=== PATIENT | female | born 1990 | race Caucasian/White ===

== ENCOUNTER 2018-05-21 14:43 | Outpatient (CLI) | payer OTHER ==
[2018-05-21 15:27] LABS: APPEARANCE,URINE SLIGHTLY-CLOUDY; BILIRUBIN,URINE NEGATIVE (NEGATIVE); COLOR,URINE YELLOW; GLUCOSE, URINE NEGATIVE (NEGATIVE); KETONES,URINE TRACE mg/dL (NEGATIVE); LEUKOCYTE ESTERASE,URINE NEGATIVE (NEGATIVE); NITRITE,URINE NEGATIVE (NEGATIVE); PROTEIN,URINE NEGATIVE (NEGATIVE); URINE SPECIFIC GRAVITY 1.025; UROBILINOGEN,URINE NEGATIVE mg/dL (<2.0)
[2018-05-21 15:40] LABS: ABSOLUTE LYMPHOCYTES (AUTO) 1.6 10^3/uL (0.5-4.7); ABSOLUTE MONOCYTES (AUTO) 0.8 10^3/uL (0.1-1.4); ABSOLUTE NEUT (AUTO) 7.4 10^3/uL (1.7-8.2); BASOPHILS % (AUTO) 0.2 % (0-2); EOSINOPHILS % (AUTO) 0.2 % (0-6); HEMATOCRIT 37.1 % (36.0-47.0); HEMOGLOBIN 12.7 g/dL (12.0-15.5); LYMPHOCYTES % (AUTO) 16.7 % (13-45); MEAN CORPUSCULAR HEMOGLOBIN 31.3 pg (27.0-33.4); MEAN CORPUSCULAR HGB CONC 34.2 g/dL (32.0-36.0); MEAN CORPUSCULAR VOLUME 92 fl (80-97); MONOCYTES % (AUTO) 8.3 % (3-13); PLATELET COUNT 158 10^3/uL (150-450); RED BLOOD COUNT 4.04 10^6/uL (3.72-5.28); RED CELL DISTRIBUTION WIDTH 13.7 % (11.5-14.0); SEGMENTED NEUTROPHILS % (AUTO) 74.6 % (42-78); TOTAL CELLS COUNTED % (AUTO) 100 %; WHITE BLOOD COUNT 9.9 10^3/uL (4.0-10.5)
[2018-05-21 15:41] LABS: URINE AMPHETAMINES SCREEN NEGATIVE; URINE BARBITURATES SCREEN NEGATIVE; URINE BENZODIAZEPINES SCREEN NEGATIVE; URINE COCAINE SCREEN NEGATIVE; URINE MARIJUANA (THC) SCREEN NEGATIVE; URINE METHADONE SCREEN NEGATIVE; URINE PHENCYCLIDINE SCREEN NEGATIVE
[2018-05-21 15:43] LABS: UR PRO/CREAT RATIO RESULT 0.1 mg/mg (0.0-0.2); URINE CREATININE 134.6 mg/dL (16-327)
[2018-05-21 15:58] LABS: ALANINE AMINOTRANSFERASE 11 U/L (9-52); ALKALINE PHOSPHATASE 113 U/L (38-126); ANION GAP 5 (5-19); ASPARTATE AMINO TRANSFERASE 13 U/L (14-36); BILIRUBIN,DIRECT 0.2 mg/dL (0.0-0.4); BILIRUBIN,TOTAL 0.3 mg/dL (0.2-1.3); BLOOD UREA NITROGEN 9 mg/dL (7-20); CALCIUM 9.3 mg/dL (8.4-10.2); CARBON DIOXIDE 23 mmol/L (22-30); CHLORIDE 109 mmol/L (98-107); GLUCOSE 86 mg/dL (75-110); POTASSIUM 4.1 mmol/L (3.6-5.0); SODIUM 136.5 mmol/L (137-145); TOTAL PROTEIN 5.6 g/dL (6.3-8.2); URIC ACID 4.7 mg/dL (2.5-6.2)
--- NOTE | 2018-05-21 16:42 | Non Stress Test Report ---
Non Stress Test Datetime Report Generated by CPN: 05/21/2018 16:42 DEMOGRAPHIC EGA NST: 39.2 MONITORING Monitor Explained: Monitor Explained; Test Explained; Patient Verbalized Understanding Time on Monitor: 05/21/2018 15:09 Time off Monitor: 05/21/2018 16:21 NST Duration: 72 NST INTERVENTIONS NST Interventions: PO Hydration; Reposition Patient Physician Notified NST: J SERRANO, CNM REVIEWED STRIP BABY A: [id number] BABY A Movement : Present Contraction Frequency : IRREG FHR Baseline : 115 Accelerations : 15X15 Decelerations : None Variability : Moderate 6-25bpm NST Review: Meets Criteria for Reactive NST NST Review and Verified By : MARIPOSA ATWOOD Results: Reactive NST REPORT Report Trigger: Send Report
== END 2018-05-21 16:40 | disposition home or self-care (01) ==
LOC: LC 14:43
PROVIDERS: ATTEND Obstetrics & Gynecology Gynecology
DX: Z34.93 Encounter for supervision of normal pregnancy, unspecified, third trimester (principal)
CPT/HCPCS: 36415; 59025; 80053; 80307; 81001; 82570; 83615; 84112; 84156; 84550; 85025

== ENCOUNTER 2018-05-26 22:27 | Inpatient (IN) | payer OTHER ==
[2018-05-26] MEDS: RINGERS SOLUTION,LACTATED 1,000 ML IV PRN (23:00)
[2018-05-26] MEDS ORDERED: DINOPROSTONE 10 MG VAGINAL INSERT.SR ONE (23:21)
[2018-05-26] MEDS ORDERED: RINGERS SOLUTION,LACTATED 300 ML IV ONE (23:33)
[2018-05-26] MEDS ORDERED: MAG HYDROX/AL HYDROX/SIMETH SUSP 30 ML UDCUP PO PRN (23:33)
[2018-05-26] MEDS ORDERED: DINOPROSTONE 10 MG VAGINAL INSERT.SR PV ONE (23:33)
[2018-05-26] MEDS ORDERED: OXYTOCIN/NORMAL SALINE 20 UNIT/1,000 ML RTUINJ IV PRN (23:33)
[2018-05-26] MEDS ORDERED: ACETAMINOPHEN 325 MG TABLET PO PRN (23:33)
[2018-05-26 23:47] LABS: ABSOLUTE LYMPHOCYTES (AUTO) 1.5 10^3/uL (0.5-4.7); ABSOLUTE MONOCYTES (AUTO) 0.7 10^3/uL (0.1-1.4); ABSOLUTE NEUT (AUTO) 5.3 10^3/uL (1.7-8.2); BASOPHILS % (AUTO) 0.3 % (0-2); EOSINOPHILS % (AUTO) 0.3 % (0-6); HEMATOCRIT 35.7 % (36.0-47.0); HEMOGLOBIN 12.4 g/dL (12.0-15.5); LYMPHOCYTES % (AUTO) 20.1 % (13-45); MEAN CORPUSCULAR HEMOGLOBIN 31.8 pg (27.0-33.4); MEAN CORPUSCULAR HGB CONC 34.7 g/dL (32.0-36.0); MEAN CORPUSCULAR VOLUME 92 fl (80-97); MONOCYTES % (AUTO) 9.6 % (3-13); PLATELET COUNT 148 10^3/uL (150-450); RED BLOOD COUNT 3.89 10^6/uL (3.72-5.28); RED CELL DISTRIBUTION WIDTH 13.8 % (11.5-14.0); SEGMENTED NEUTROPHILS % (AUTO) 69.7 % (42-78); TOTAL CELLS COUNTED % (AUTO) 100 %; WHITE BLOOD COUNT 7.7 10^3/uL (4.0-10.5)
[2018-05-26] MEDS ORDERED: ZOLPIDEM TARTRATE 5 MG TABLET ONE (23:55)
[2018-05-27] LABS: APPEARANCE,URINE SLIGHTLY-CLOUDY; BILIRUBIN,URINE NEGATIVE (NEGATIVE); COLOR,URINE YELLOW; GLUCOSE, URINE NEGATIVE (NEGATIVE); KETONES,URINE NEGATIVE (NEGATIVE); LEUKOCYTE ESTERASE,URINE NEGATIVE (NEGATIVE); NITRITE,URINE NEGATIVE (NEGATIVE); PROTEIN,URINE NEGATIVE (NEGATIVE); URINE SPECIFIC GRAVITY 1.025; UROBILINOGEN,URINE NEGATIVE mg/dL (<2.0)
[2018-05-27] MEDS: ZOLPIDEM TARTRATE 5 MG TABLET PO PRN ×2 (00:03→21:37)
[2018-05-27 00:23] LABS: URINE AMPHETAMINES SCREEN NEGATIVE; URINE BARBITURATES SCREEN NEGATIVE; URINE BENZODIAZEPINES SCREEN NEGATIVE; URINE COCAINE SCREEN NEGATIVE; URINE MARIJUANA (THC) SCREEN NEGATIVE; URINE METHADONE SCREEN NEGATIVE; URINE PHENCYCLIDINE SCREEN NEGATIVE
--- NOTE | 2018-05-27 06:11 | Admission Physical ---
Datetime Report Generated by CPN: 05/27/2018 06:10 CURRENT ADMISSION Chief Complaint: Scheduled Induction of Labor Indication for Induction: Maternal Diabetes Admit Impression : Term, Intrauterine ; Induction of Labor Admit Plan: Admit to Unit; Initiate Labor Induction Protocol ALLERGIES Medication Allergies: No Medication Allergies: No Known Allergies (05/26/2018) Latex: No Latex Allergies OBSTETRICAL HISTORY EDC: 05/26/2018 00:00 : 1 Para: 0 Term: 0 : 0 SAB: 0 IAB: 0 Ectopic: 0 Livin Cesareans: 0 VBACs: 0 Multiple Births: 0 Gestational Diabetes: Yes Rh Sensitization: No Incompetent Cervix: No MARIO: No Infertility: No ART Treatment: No Uterine Anomaly: No IUGR: No Hx Previous C/S: No Macrosomia: Yes Hx Loss/Stillborn: No PIH: No Hx : No Placenta Previa/Abruption: No Depression/PP Depression: No PTL/PROM: No Post Hemorrhage: No Current Procedures: Ultrasound; NST Obstetrical History Comments: G1- SEE RECORDS Alcohol: No Marijuana : No Cocaine: No Other Illicit Drugs: No Cigarettes: Former Smoker. [id number] MEDICAL HISTORY Diabetes: Yes Diabetes Type: Gestational Diabetes Blood Transfusion: No Pulmonary Disease (Asthma, TB): No Breast Disease: No Hypertension: No Computer Applications Engineer Surgery: No Heart Disease: No Hosp/Surgery: Yes Autoimmune Disorder: No Anesthetic Complications: No Kidney Disease: No Abnormal Pap Smear: No Neuro/Epilepsy: No Psychiatric Disorders: No Other Medical Diseases: Yes Hepatitis/Liver Disease: No Significant Family History: No Varicosities/Phlebitis: No Trauma/Violence : No Thyroid Dysfunction: No Medical History Comments: MORBID OBESITY, inner ear sx, T_A, Appe INFECTIOUS HISTORY Gonorrhea: No Genital Herpes: No Chlamydia: No Tuberculosis: No Syphilis: No Hepatitis: No HIV/AIDS Exposure: No Rash or Viral Illness: No HPV: No PHYSICAL EXAM General: Normal HEENT: Normal Neurologic: Normal Thyroid: Normal Heart: Normal Lungs: Normal Breast: Normal Back: Normal Abdomen: Normal Genitourinary Exam: Normal Extremities: Normal DTRs: Normal Pelvic Type: Adequate Vital Signs: Reviewed; Within Normal Limits VAGINAL EXAM Dilatation: 0 Effacement: 0 Station: -3 MEMBRANES Pooling: Negative Membranes: Intact FETUS A EGA: 40.1 Monitoring: External US FHR- Baseline: 130 Variability: Moderate 6-25bpm Accelerations: 15X15 Decelerations: None FHR Category: Category I Estimated Weight (gm): 3800 Presentation: Vertex PLANS FOR LABOR AND DELIVERY Labor and Delivery: Plan Pain Management: Natural Feeding Preference: Breast Benefit of Breast Feed Discussed: Yes Circumcision: Yes INFORMED CONSENT Signature: with User ID: [email or web address]
[2018-05-27] MEDS ORDERED: MISOPROSTOL 0.2 MG TABLET ONE (06:40)
[2018-05-27] MEDS ORDERED: OXYTOCIN/NORMAL SALINE 20 UNIT/1,000 ML RTUINJ ONE (06:41)
[2018-05-27] MEDS ORDERED: LIDOCAINE 1% INJ-PF (10 MG/ML) 30 ML SDV ONE (06:41)
[2018-05-27] MEDS ORDERED: PENICILLIN G POTASSIUM 5,000,000 UNIT in DEXTROSE 5%-WATER 100 ML IV ONE (08:10)
--- NOTE | 2018-05-27 13:07 | L&D Progress Notes ---
PROGRESS NOTES Datetime Report Generated by CPN: 05/27/2018 13:07 PROGRESS NOTE Impression: Reassuring Heart Rate Procedures: Sterile Vag Exam Plan: Induction Vital Signs : Reviewed; Within Normal Limits Comment: at 40.1 wks here starting last night for IOL due to GDM. S/p vaginal cervidil x 12 hours. Pt remains comfortable. +GBS. Plan PCN when in active labor. VE dimple/ [address] vaginal Cytotec to continue with IOL. Attending MD is Younger VAGINAL EXAM Dilatation: dimple Dilatation: 0 Effacement: 30 Effacement: 0 Station: -2 Station: -3 Contractions: occassional LAST VAGINAL EXAM-NURSING Dilitation: closed Effacement: thick Station: -2 Contractions: irritibility MEMBRANES Pooling: Negative Membranes: Intact Membranes: Intact FETUS A FHR - Baseline: 135 Monitoring: External US Variability: Moderate 6-25bpm Accelerations: 15X15 Decelerations: None FHR Category: Category I : 40.1 Estimated Weight (gm): 3800 Presentation: Vertex SIGNATURE SIGNATURE: [id number];14,[id number];13,[id number] SIGNATURE: [id number];14,[id number] SIGNATURE: [id number] Assignment: Shiloh Best MD Signature: with User ID: [email or web address] : with User ID: [email or web address]
[2018-05-27] MEDS ORDERED: MISOPROSTOL 0.1 MG TABLET ONE (13:18)
[2018-05-27] MEDS ORDERED: DINOPROSTONE 10 MG VAGINAL INSERT.SR PV ONE (19:00)
[2018-05-27] MEDS ORDERED: DINOPROSTONE 10 MG VAGINAL INSERT.SR ONE (19:55)
[2018-05-27] MEDS: RINGERS SOLUTION,LACTATED 1,000 ML IV PRN (20:14)
[2018-05-27] MEDS ORDERED: ZOLPIDEM TARTRATE 5 MG TABLET ONE (21:35)
[2018-05-28] MEDS: RINGERS SOLUTION,LACTATED 1,000 ML IV PRN ×3 (03:42→22:10)
--- NOTE | 2018-05-28 09:24 | L&D Progress Notes ---
PROGRESS NOTES Datetime Report Generated by CPN: 05/28/2018 09:23 PROGRESS NOTE Impression: Reassuring Heart Rate Procedures: Sterile Vag Exam Plan: Continue Present Management Comment: morrell bulb and pitocin VAGINAL EXAM Dilatation: 1 Effacement: 70 Station: -3 Dilitation: 1.0 Dilitation: FT Effacement: 70 Effacement: thick Station: -3 Station: -2 Contractions: irritability Contractions: irritibility MEMBRANES Membranes: Intact FETUS A FHR - Baseline: 140 : 40.2 FETUS C SIGNATURE: [id number];[id number];10,[id number] Assignment: Manish Chahal MD Signature: with User ID: [email or web address] : with User ID: [email or web address]
[2018-05-28] MEDS ORDERED: PENICILLIN G-K 5 MILLION UNIT VIAL ONE ×4 (10:08→22:00)
[2018-05-28] MEDS ORDERED: PROMETHAZINE HCL INJ 25 MG/1 ML VIAL ONE (11:36)
[2018-05-28] MEDS ORDERED: NALBUPHINE HCL INJ 10 MG/1 ML AMPULE ONE (11:36)
[2018-05-28] MEDS: PENICILLIN G POTASSIUM 2,500,000 UNIT in DEXTROSE 5%-WATER 50 ML IV SCH ×6 (13:30→18:22)
[2018-05-28] MEDS ORDERED: EPHEDRINE SULFATE INJ 50 MG/1 ML AMPULE ONE (14:30)
[2018-05-28] MEDS ORDERED: FENTANYL/BUPIVACAINE/NS/PF 300 MCG/150 ML RTUINJ EPI ONE (14:31)
[2018-05-28] MEDS ORDERED: BUPIVACAINE HCL 0.25 % INJ/PF (2.5 MG/1 ML) 30 ML VIAL ONE (14:31)
[2018-05-28 14:32] LABS: HEMATOCRIT 38.4 % (36.0-47.0); HEMOGLOBIN 13.4 g/dL (12.0-15.5); MEAN CORPUSCULAR HEMOGLOBIN 31.8 pg (27.0-33.4); MEAN CORPUSCULAR HGB CONC 34.9 g/dL (32.0-36.0); MEAN CORPUSCULAR VOLUME 91 fl (80-97); PLATELET COUNT 160 10^3/uL (150-450); WHITE BLOOD COUNT 10.5 10^3/uL (4.0-10.5)
[2018-05-28 14:44] LABS: ALANINE AMINOTRANSFERASE 23 U/L (9-52); ALBUMIN 3.2 g/dL (3.5-5.0); ALKALINE PHOSPHATASE 137 U/L (38-126); ANION GAP 6 (5-19); ASPARTATE AMINO TRANSFERASE 14 U/L (14-36); BILIRUBIN,TOTAL 0.3 mg/dL (0.2-1.3); BLOOD UREA NITROGEN 9 mg/dL (7-20); CALCIUM 9.2 mg/dL (8.4-10.2); CARBON DIOXIDE 20 mmol/L (22-30); CHLORIDE 110 mmol/L (98-107); GLUCOSE 105 mg/dL (75-110); POTASSIUM 4.3 mmol/L (3.6-5.0); TOTAL PROTEIN 5.6 g/dL (6.3-8.2); URIC ACID 5.3 mg/dL (2.5-6.2)
[2018-05-28] MEDS ORDERED: HYDRALAZINE HCL INJ/PF 20 MG/1 ML SDV ONE (15:51)
[2018-05-28] MEDS ORDERED: HYDRALAZINE HCL INJ/PF 20 MG/1 ML SDV IV ONE ×2 (16:03→16:40)
[2018-05-28] MEDS ORDERED: LIDOCAINE 2% INJ-PF (20 MG/ML) 10 ML AMPUL ONE ×2 (16:58→21:01)
[2018-05-28] MEDS ORDERED: OXYTOCIN 10 UNIT/ML VIAL ONE (21:26)
[2018-05-28] MEDS ORDERED: ACETAMINOPHEN 325 MG TABLET ONE (22:31)
[2018-05-29] MEDS ORDERED: OXYTOCIN/NORMAL SALINE 20 UNIT/1,000 ML RTUINJ IV PRN (02:25)
[2018-05-29] MEDS ORDERED: DIBUCAINE 1% OINTMENT 28 GM TP PRN (02:25)
[2018-05-29] MEDS ORDERED: ZOLPIDEM TARTRATE 5 MG TABLET PO PRN (02:25)
[2018-05-29] MEDS ORDERED: PROMETHAZINE HCL 25 MG SUPP.RECT PR PRN (02:25)
[2018-05-29] MEDS ORDERED: MAGNESIUM HYDROXIDE SUSP 30 ML UDCUP PO PRN (02:25)
[2018-05-29] MEDS ORDERED: NA PHOS,M-B/NA PHOS,DI-BA (ADULT) 133 ML ENEMA PR PRN (02:25)
[2018-05-29] MEDS ORDERED: PSEUDOEPHEDRINE HCL 30 MG TABLET PO PRN (02:25)
[2018-05-29] MEDS ORDERED: MEASLES,MUMPS&RUBELLA VACC/PF 0.5 ML VIAL SUBCUT PRN (02:25)
[2018-05-29] MEDS ORDERED: GLYCERIN/WITCH HAZEL LEAF 1 EACH MED..PAD TP PRN (02:25)
[2018-05-29] MEDS ORDERED: DIPHENHYDRAMINE HCL 25 MG CAPSULE PO PRN (02:25)
[2018-05-29] MEDS ORDERED: PROMETHAZINE HCL 25 MG TABLET PO PRN (02:25)
[2018-05-29] MEDS ORDERED: PROMETHAZINE HCL INJ 25 MG/1 ML VIAL IV PRN (02:25)
[2018-05-29] MEDS ORDERED: BENZOCAINE/MENTHOL AEROSOL SPRAY 56 ML TOP PRN (02:25)
[2018-05-29] MEDS ORDERED: ACETAMINOPHEN 650 MG SUPP.RECT PR PRN (02:25)
[2018-05-29] MEDS ORDERED: ACETAMINOPHEN WITH CODEINE #3 TABLET PO PRN ×2 (02:25)
[2018-05-29] MEDS ORDERED: DIPH/PERTUSS(ACELL)/TETANUS VAC/PF 0.5 ML SYR (>=10YO) IM PRN (02:25)
[2018-05-29] MEDS ORDERED: OXYTOCIN/NORMAL SALINE 20 UNIT/1,000 ML RTUINJ ONE (02:35)
--- NOTE | 2018-05-29 03:07 | Delivery Summary ---
Del Sum A-C Datetime Report Generated by CPN: 05/29/2018 03:06 DELIVERY PERSONNEL DELIVERY PERSONNEL: [id number] Delivery Doctor:: Manish Chahal MD Labor and Delivery Nurse:: Tessa Astorga RNpower press operator Nurse:: Vannesa Burgos, MARIPOSA Cath Lab Tech/CYLINDER PRESS OPERATOR APPRENTICE: Arenesvin Durán, CYLINDER PRESS OPERATOR APPRENTICE MATERNAL INFORMATION Delivery Anesthesia: Epidural Medications After Delivery: Pitocin Drip 20 Units/1000ml NSS Estimated Blood Loss (ml): 250 Maternal Complications: Maternal Fever LABOR SUMMARY EDC: 05/26/2018 00:00 No. Babies in Womb: 1 Attempted: No Labor Anesthesia: Epidural LABOR INFORMATION Reason for Induction: Maternal Diabetes Onset of Labor: 05/28/2018 14:12 Complete Dilatation: 05/28/2018 23:19 Cervical Ripening Agents: Cervidil Oxytocin: Induction Group B Beta Strep: POSITIVE Antibiotics # of Doses: 4 Antibiotics Time of Last Dose: 2234 Name of Antibiotic Given: Penicillin Steroids Given: None Reason Steroids Not Administered: Not Applicable MEMBRANES Membranes Rupture Method: Spontaneous Rupture of Membranes: 05/28/2018 14:12 Length of Rupture (hr): 11.88 Amniotic Fluid Color: Clear Amniotic Fluid Amount: Moderate Amniotic Fluid Odor: None STAGES OF LABOR Stage 1 hr: 9 Stage 1 min: 7 Stage 2 hr: 2 Stage 2 min: 46 Stage 3 hr: 0 Stage 3 min: 5 Total Time in Labor hr: 11 Total Time in Labor min: 58 VAGINAL DELIVERY Episiotomy: None Laceration #1: Perineal Laceration Extension #1: Second Degree Laceration #2: None Laceration Extension #2: N/A Laceration #3: None Laceration Extension #3: N/A Laceration Repair: Yes Laceration Repair Note: repair in usual fashion with 3-0 chromic suture Sponge Count Correct: Vaginal Sweep Performed Sharps Count Correct: Yes CSECTION DELIVERY Primary Indication: N/A Secondary Indication: N/A CSection Incidence: N/A Labor: N/A Elective: N/A CSection Incision: N/A BABY A INFORMATION Delivery Date/Time: 05/29/2018 02:05 Method of Delivery: Vaginal Born in Route : No : N/A Forceps: N/A Vacuum Extraction: N/A Shoulder Dystocia : No PRESENTATION/POSITION BABY A Presentation: Cephalic Cephalic Presentation: Vertex Vertex Position: Right Occipital Anterior Breech Presentation: N/A PLACENTA INFORMATION BABY A Placenta Delivery Time : 05/29/2018 02:10 Placenta Method of Delivery: Spontaneous Placenta Status: Delivered SCORES BABY A Heart Rate 1 min: >100 bpm Resp Effort 1 min: Good Cry Reflex Irritability 1 min: Cough or Sneeze or Pulls Away Muscle Tone 1 min: Active Motion Color 1 min: Blue/Pale SCORE 1 MIN: 8 Heart Rate 5 min: >100 bpm Resp Effort 5 min: Good Cry Reflex Irritability 5 min: Cough or Sneeze or Pulls Away Muscle Tone 5 min: Active Motion Color 5 min: Body [place], Extremities Blue SCORE 5 MIN: 9 INFORMATION BABY A Gestational Age at Delivery: 40.3 Gestational Status: Full Term- 39- 40.6 Weeks Outcome : Liveborn Condition : Stable Infant Sex: Male IDENTIFICATION BABY A Verification Date/Time: 05/29/2018 02:21 ID Band Number: [id number] Mother's Name Verified: Yes Infant RN Verifying Infant: NDoyle RN Additional Verifying Personnel: Donell RN WEIGHT/LENGTH BABY A Infant Birthweight (gm): 3901 Infant Weight (lb): 8 Infant Weight (oz): 10 Length (in): 20.50 Infant Length (cm): 52.07 CORD INFORMATION BABY A No. Cord Vessels: 3 Nuchal Cord : N/A Cord Blood Taken: Yes-For Storage (Mom's Blood type +) Infant Suction: Mouth; Nose ASSESSMENT BABY A Complications: None Physical Findings at Delivery: Within Normal Limits Skin to Skin: Yes Skin to Skin Time (min): 15 Transferred To: Remains with Mother BABY B INFORMATION : N/A SIGNATURES Signature: with User ID: Justin : I was personally available for consultation and serving as supervising physician for the MLP.
--- NOTE | 2018-05-29 03:07 | Warning Signs in Babies ---
VOD Warning Signs Datetime Report Generated by [facility]: 05/29/2018 03:06 VOD#[id number] -Warning Signs in Babies: Needs to be viewed. (05/21/2018 14:41:Tessa Astorga RN)
[2018-05-29] MEDS ORDERED: IBUPROFEN 800 MG TABLET ONE (03:14)
[2018-05-29] MEDS: MISOPROSTOL 0.1 MG TABLET PV SCH ×2 (04:56→04:57)
[2018-05-29] MEDS: PENICILLIN G POTASSIUM 2,500,000 UNIT in DEXTROSE 5%-WATER 50 ML IV SCH ×3 (04:57→07:45)
[2018-05-29] MEDS: IBUPROFEN 800 MG TABLET PO SCH ×3 (05:43→21:29)
[2018-05-29] MEDS: PRENATAL VITAMIN W DHA CAPSULE PO SCH (09:46)
[2018-05-29] MEDS: FERROUS SULFATE 325 MG TABLET PO SCH ×2 (09:46→17:10)
[2018-05-29] MEDS: DOCUSATE SODIUM 100 MG CAPSULE PO SCH ×2 (09:46→17:10)
[2018-05-29] MEDS: SENNOSIDES/DOCUSATE 8.6-50 MG 1 EACH TABLET PO SCH (09:47)
[2018-05-29] MEDS: FAMOTIDINE 20 MG TABLET PO SCH ×2 (09:47→21:29)
--- NOTE | 2018-05-29 10:32 | PDOC PROGRESS REPORT ---
Subjective-OB Progress Note for:: 05/29/18 Subjective: Doing well, , no c/o Physical Exam (OB) Vital Signs: Temp Pulse Resp BP Pulse Ox 98.3 F 81 18 130/71 H 99 05/29/18 07:47 05/29/18 07:47 05/29/18 07:47 05/29/18 07:47 05/29/18 07:47 Intake & Output 05/28/18 05/29/18 05/30/18 06:59 06:59 06:59 Intake Total 1932 2149 Balance 1932 2149 - PIH/Pre-Eclampsia DTR's: 2 + Clonus: Negative Headache: Absent Epigastric Pain: No Visual Changes: No - Lochia Lochia Amount: Small 10-25 ml Lochia Color: Rubra/Red - Abdomen Description: Soft, Round Fundal Description: Firm Fundal Height: u/u - u/2 Objective-Diagnostic Laboratory: 05/28/18 14:19 05/28/18 14:19 05/28/18 05/28/18 14:19 14:19 WBC 10.5 RBC 4.20 Hgb 13.4 Hct 38.4 MCV 91 MCH 31.8 MCHC 34.9 RDW 14.0 Plt Count 160 Sodium 136.0 L Potassium 4.3 Chloride 110 H Carbon Dioxide 20 L Anion Gap 6 BUN 9 Creatinine 0.54 Est GFR ( Amer) > 60 Est GFR (Non-Af Amer) > 60 Glucose 105 Uric Acid 5.3 Calcium 9.2 Total Bilirubin 0.3 AST 14 ALT 23 Alkaline Phosphatase 137 H Total Protein 5.6 L Albumin 3.2 L Assessment and Plan(PN) - Assessment and Plan (1) Delivery normal Is this a current diagnosis for this admission?: Yes (2) Obesity affecting in third trimester Is this a current diagnosis for this admission?: Yes (3) Gestational diabetes Qualifiers: Gestational diabetes mellitus control: diet-controlled Is this a current diagnosis for this admission?: Yes (4) Encounter for induction of labor Is this a current diagnosis for this admission?: Yes - Time Spent with Patient Time with patient: Less than 15 minutes Medications reviewed and adjusted accordingly: Yes - Disposition Anticipated Discharge: Home Within: within 24 hours
[2018-05-29] MEDS: ENOXAPARIN SODIUM INJ 40 MG/0.4 ML DISP.SYRIN SUBCUT SCH (11:22)
[2018-05-30] MEDS: IBUPROFEN 800 MG TABLET PO SCH ×3 (05:29→21:26)
[2018-05-30 07:55] LABS: HEMATOCRIT 29.7 % (36.0-47.0); MEAN CORPUSCULAR VOLUME 94 fl (80-97); PLATELET COUNT 140 10^3/uL (150-450); RED BLOOD COUNT 3.16 10^6/uL (3.72-5.28); RED CELL DISTRIBUTION WIDTH 14.1 % (11.5-14.0); WHITE BLOOD COUNT 9.4 10^3/uL (4.0-10.5)
[2018-05-30 07:58] LABS: HEMOGLOBIN 10.1 g/dL (12.0-15.5)
[2018-05-30] MEDS: DOCUSATE SODIUM 100 MG CAPSULE PO SCH ×2 (10:47→17:57)
[2018-05-30] MEDS: PRENATAL VITAMIN W DHA CAPSULE PO SCH (10:47)
[2018-05-30] MEDS: FERROUS SULFATE 325 MG TABLET PO SCH ×2 (10:47→17:57)
[2018-05-30] MEDS: SENNOSIDES/DOCUSATE 8.6-50 MG 1 EACH TABLET PO SCH (10:47)
[2018-05-30] MEDS: FAMOTIDINE 20 MG TABLET PO SCH ×2 (10:47→21:26)
[2018-05-30] MEDS: ENOXAPARIN SODIUM INJ 40 MG/0.4 ML DISP.SYRIN SUBCUT SCH (10:48)
--- NOTE | 2018-05-30 14:35 | PDOC PROGRESS REPORT ---
Subjective-OB Progress Note for:: 05/30/18 Subjective: states bleeding is slowing, pain controlled with current meds. denies needs Physical Exam (OB) Vital Signs: Temp Pulse Resp BP Pulse Ox 98.3 F 85 18 117/69 100 05/30/18 07:44 05/30/18 07:44 05/30/18 07:44 05/30/18 07:44 05/30/18 07:44 Intake & Output 05/29/18 05/30/18 05/31/18 06:59 06:59 06:59 Intake Total 3150 1050 500 Balance 3150 1050 500 - Abdomen Description: Soft Hernia Present: No Fundal Description: Firm Fundal Height: u/u - u/2 - Abdominal Distension: No distension Tenderness: Nontender - Extremities Lower extremities: Mira's sign - neg Calf: Normal, Nontender Objective-Diagnostic Laboratory: 05/30/18 07:20 05/28/18 14:19 05/30/18 07:20 WBC 9.4 RBC 3.16 L Hgb 10.1 L D Hct 29.7 L MCV 94 MCH 32.0 MCHC 34.0 RDW 14.1 H Plt Count 140 L Assessment and Plan(PN) - Assessment and Plan (1) Obstetrical laceration Is this a current diagnosis for this admission?: Yes (2) Delivery normal Is this a current diagnosis for this admission?: Yes - Time Spent with Patient Time with patient: Less than 15 minutes Medications reviewed and adjusted accordingly: Yes - Disposition Anticipated Discharge: Home Within: within 24 hours
[2018-05-31] MEDS: IBUPROFEN 800 MG TABLET PO SCH (05:32)
[2018-05-31 08:36] VITALS: BP 132/78
--- NOTE | 2018-05-31 09:54 | PDOC DISCHARGE SUMMARY ---
Final Diagnosis Discharge Date: 05/31/18 - Final Diagnosis (1) Obstetrical laceration Is this a current diagnosis for this admission?: Yes (2) Delivery normal Is this a current diagnosis for this admission?: Yes Discharge Data - Discharge Medication Prescriptions: Ibuprofen [Motrin 800 mg Tablet] 800 mg PO Q8HP PRN #60 tablet PRN Reason: Home Medications: No122/Iron/Folic Acid [ Multi Tablet] 1 tab PO DAILY 05/21/18 Ranitidine HCl [Zantac 150 mg Tablet] 1 tab PO DAILY 05/21/18 Ibuprofen [Motrin 800 mg Tablet] 800 mg PO Q8HP PRN #60 tablet 05/31/18 Procedures: NST Intrapartum Procedure(s): Spontaneous Vaginal Delivery Laceration-Degree: 1st - Diagnosis Test Laboratory: Temp Pulse Resp BP Pulse Ox 98.1 F 92 18 132/78 H 99 05/31/18 08:16 05/31/18 08:16 05/31/18 08:16 05/31/18 08:16 05/31/18 08:16 05/26/18 05/26/18 05/28/18 22:45 23:35 14:19 RBC 3.89 4.20 Hgb 12.4 13.4 Hct 35.7 L 38.4 Urine Opiates Screen NEGATIVE 05/30/18 07:20 RBC 3.16 L Hgb 10.1 L D Hct 29.7 L Urine Opiates Screen - Discharge information/Instructions Discharge Activity: Balance Activity w/Rest, Pelvic Rest Discharge Diet: Regular Disposition: HOME, SELF-CARE Follow up with: [facility] in: 4, Weeks
[2018-05-31] MEDS: ENOXAPARIN SODIUM INJ 40 MG/0.4 ML DISP.SYRIN SUBCUT SCH (10:01)
[2018-05-31] MEDS: SENNOSIDES/DOCUSATE 8.6-50 MG 1 EACH TABLET PO SCH (10:01)
[2018-05-31] MEDS: FERROUS SULFATE 325 MG TABLET PO SCH (10:01)
[2018-05-31] MEDS: PRENATAL VITAMIN W DHA CAPSULE PO SCH (10:01)
[2018-05-31] MEDS: DOCUSATE SODIUM 100 MG CAPSULE PO SCH (10:01)
[2018-05-31] MEDS: FAMOTIDINE 20 MG TABLET PO SCH (10:01)
--- NOTE | 2018-06-18 14:20 | PDOC PROGRESS REPORT ---
Subjective Progress Note for:: 06/18/18 Subjective:: This note is an addendum for the Delivery Summary written by Makenzie Guzman CNM, to correct the documentation for her laceration. She documented that the pt sustained a 1st degree laceration. Dr. Chahal delivered this patient and documented her laceration as 2nd DEGREE. Reason For Visit: Physical Exam - Physical Exam Vital Signs: Temp Pulse Resp BP Pulse Ox 98.1 F 92 18 132/78 H 99 05/31/18 12:20 05/31/18 12:20 05/31/18 12:20 05/31/18 08:16 05/31/18 12:20 Result Laboratory Results: 05/30/18 07:20 05/28/18 14:19
== END 2018-05-31 13:18 | disposition home or self-care (01) | DRG 806 ==
LOC: LR 22:27 → 2S 05-29 04:15
PROVIDERS: ADMIT Obstetrics & Gynecology; ATTEND Obstetrics & Gynecology
PROC: 3E0P7VZ Introduction of Hormone into Female Reproductive, Via Natural or Artificial Opening (ICD-10-PCS; 2018-05-26)
PROC: 4A1HXCZ Monitoring of Products of Conception, Cardiac Rate, External Approach (ICD-10-PCS; 2018-05-26)
PROC: 10E0XZZ Delivery of Products of Conception, External Approach (ICD-10-PCS; principal; 2018-05-28)
PROC: 0KQM0ZZ Repair Perineum Muscle, Open Approach (ICD-10-PCS; 2018-05-28)
DX: O99.824 Streptococcus B carrier state complicating childbirth (principal); O75.2 Pyrexia during labor, not elsewhere classified; Z37.0 Single live birth; O70.1 Second degree perineal laceration during delivery; O24.420 Gestational diabetes mellitus in childbirth, diet controlled; O99.214 Obesity complicating childbirth; E66.01 Morbid (severe) obesity due to excess calories; Z3A.40 40 weeks gestation of pregnancy; Z87.891 Personal history of nicotine dependence
CPT/HCPCS: 36415; 80053; 80307; 81005; 82962; 83615; 84550; 85025; 85027; 86592; 86850; 86900; 86901; C1758; J0360; J1650; J2300; J2540; J2550; J2590; J3010; J3490

== ENCOUNTER 2019-07-24 07:37 | Inpatient (IN) | payer MEDICAID, OTHER ==
[2019-07-24] MEDS ORDERED: LIDOCAINE 1% INJ-PF (10 MG/ML) 30 ML SDV ONE (07:43)
[2019-07-24] MEDS ORDERED: OXYTOCIN 10 UNIT/ML VIAL ONE (07:43)
[2019-07-24] MEDS ORDERED: OXYTOCIN/NORMAL SALINE 20 UNIT/1,000 ML RTUINJ ONE (07:43)
[2019-07-24] MEDS ORDERED: MISOPROSTOL 0.2 MG TABLET ONE (07:43)
[2019-07-24] MEDS ORDERED: RINGERS SOLUTION,LACTATED 1,000 ML IV ONE (08:47)
[2019-07-24] MEDS ORDERED: OXYTOCIN/NORMAL SALINE 20 UNIT/1,000 ML RTUINJ IV PRN ×2 (08:50→18:20)
[2019-07-24] MEDS: RINGERS SOLUTION,LACTATED 1,000 ML IV PRN ×3 (08:50→14:12)
--- NOTE | 2019-07-24 09:09 | Admission Physical ---
Datetime Report Generated by CPN: 07/24/2019 09:08 CURRENT ADMISSION Chief Complaint: Scheduled Induction of Labor Indication for Induction: PreEclampsia Admit Impression : Term, Intrauterine ; No Active Labor; Intact Membranes; Induction of Labor Admit Plan: Admit to Unit; Initiate Labor Induction Protocol ALLERGIES Medication Allergies: No Medication Allergies: No Known Allergies (05/26/2018) Latex: No Latex Allergies OBSTETRICAL HISTORY : 2 Para: 1 Term: 1 : 0 SAB: 0 IAB: 0 Livin Gestational Diabetes: Yes Rh Sensitization: No Incompetent Cervix: No Infertility: No ART Treatment: No Uterine Anomaly: No IUGR: No Hx Previous C/S: No Macrosomia: No Hx Loss/Stillborn: No PIH: No Hx : No Placenta Previa/Abruption: No Depression/PP Depression: No PTL/PROM: No Post Hemorrhage: No Current Procedures: NST SEE RECORDS Alcohol: No Marijuana : No Cocaine: No Other Illicit Drugs: No Cigarettes: Former Smoker. [id number] Cigarette Frequency: 5 - 10 per day Cigarette Comments: Pt quit smoking when she found out she was MEDICAL HISTORY Diabetes: Yes Diabetes Type: Gestational Diabetes Blood Transfusion: No Pulmonary Disease (Asthma, TB): No Breast Disease: No Hypertension: No Drain Layer Surgery: No Heart Disease: No Hosp/Surgery: No Autoimmune Disorder: No Anesthetic Complications: No Kidney Disease: No Abnormal Pap Smear: No Neuro/Epilepsy: No Psychiatric Disorders: No Other Medical Diseases: No Hepatitis/Liver Disease: No Significant Family History: No Varicosities/Phlebitis: No Trauma/Violence : Yes Thyroid Dysfunction: No INFECTIOUS HISTORY Gonorrhea: No Genital Herpes: No Chlamydia: No Tuberculosis: No Syphilis: No Hepatitis: No HIV/AIDS Exposure: No Rash or Viral Illness: No HPV: No PHYSICAL EXAM General: Normal HEENT: Normal Neurologic: Normal Thyroid: Deferred Heart: Normal Lungs: Normal Breast: Deferred Back: Normal Abdomen: Normal Genitourinary Exam: Normal Extremities: Normal DTRs: Normal Pelvic Type: Adequate Physical Exam Comments: pelvic proven to 8#10oz. Vital Signs: Reviewed VAGINAL EXAM Dilatation: 2 Effacement: 50 Station: -2 Contraction Comments: none MEMBRANES Membranes: Intact FETUS A FHR- Baseline: 150 Accelerations: 15X15 Decelerations: None FHR Category: Category I Admit Comment: 28yo at 39+4ega presents for IOL due to GHTN. Asymptomatic - no SHEPHERD, Blurry vision. RUQ pain. 24 hr UTP over 300mg. Baseline 24 hr UTP 315mg and then repeat last week was 306mg. Growth ordered due to asymptomatic from GHTN and S>D. EFW on 07/22 was 9#0oz. cvx in office yesterday was /2. Plan to admit and induce with pitocin. GBS negative. No h/o HSV. PLANS FOR LABOR AND DELIVERY Labor and Delivery: None Pain Management: Epidural Feeding Preference: Breast Circumcision: N/A INFORMED CONSENT Signature: with User ID: [email or web address]
[2019-07-24 09:53] LABS: APPEARANCE,URINE SLIGHTLY-CLOUDY; BILIRUBIN,URINE NEGATIVE (NEGATIVE); COLOR,URINE YELLOW; GLUCOSE, URINE NEGATIVE (NEGATIVE); KETONES,URINE NEGATIVE (NEGATIVE); LEUKOCYTE ESTERASE,URINE SMALL (NEGATIVE); NITRITE,URINE NEGATIVE (NEGATIVE); PROTEIN,URINE 30 mg/dL (NEGATIVE); URINE SPECIFIC GRAVITY 1.023; UROBILINOGEN,URINE NEGATIVE mg/dL (<2.0)
[2019-07-24 09:54] LABS: ABSOLUTE MONOCYTES (AUTO) 0.8 10^3/uL (0.1-1.4); ABSOLUTE NEUT (AUTO) 7.5 10^3/uL (1.7-8.2); BASOPHILS % (AUTO) 0.3 % (0-2); EOSINOPHILS % (AUTO) 0.3 % (0-6); HEMATOCRIT 37.3 % (36.0-47.0); HEMOGLOBIN 12.6 g/dL (12.0-15.5); LYMPHOCYTES % (AUTO) 19.4 % (13-45); MEAN CORPUSCULAR HEMOGLOBIN 30.9 pg (27.0-33.4); MEAN CORPUSCULAR HGB CONC 33.8 g/dL (32.0-36.0); MEAN CORPUSCULAR VOLUME 91 fl (80-97); MONOCYTES % (AUTO) 7.9 % (3-13); PLATELET COUNT 155 10^3/uL (150-450); RED BLOOD COUNT 4.09 10^6/uL (3.72-5.28); SEGMENTED NEUTROPHILS % (AUTO) 72.1 % (42-78); TOTAL CELLS COUNTED % (AUTO) 100 %; WHITE BLOOD COUNT 10.3 10^3/uL (4.0-10.5)
[2019-07-24 10:14] LABS: ALBUMIN 2.8 g/dL (3.5-5.0); ALKALINE PHOSPHATASE 131 U/L (38-126); ANION GAP 8 (5-19); ASPARTATE AMINO TRANSFERASE 17 U/L (14-36); BILIRUBIN,DIRECT 0.2 mg/dL (0.0-0.4); BILIRUBIN,TOTAL 0.2 mg/dL (0.2-1.3); BLOOD UREA NITROGEN 14 mg/dL (7-20); CALCIUM 8.8 mg/dL (8.4-10.2); CARBON DIOXIDE 21 mmol/L (22-30); CHLORIDE 108 mmol/L (98-107); GLUCOSE 86 mg/dL (75-110); POTASSIUM 4.1 mmol/L (3.6-5.0); TOTAL PROTEIN 5.7 g/dL (6.3-8.2); URIC ACID 5.8 mg/dL (2.5-6.2)
[2019-07-24 10:15] LABS: URINE AMPHETAMINES SCREEN NEGATIVE; URINE BARBITURATES SCREEN NEGATIVE; URINE BENZODIAZEPINES SCREEN NEGATIVE; URINE COCAINE SCREEN NEGATIVE; URINE MARIJUANA (THC) SCREEN NEGATIVE; URINE METHADONE SCREEN NEGATIVE; URINE PHENCYCLIDINE SCREEN NEGATIVE
[2019-07-24 10:19] LABS: UR PRO/CREAT RATIO RESULT 0.2 mg/mg (0.0-0.2); URINE CREATININE 96.3 mg/dL (16-327); URINE PROTEIN 23.9 mg/dL (<12)
[2019-07-24] MEDS ORDERED: BUPIVACAINE HCL 0.25 % INJ/PF (2.5 MG/1 ML) 30 ML VIAL ONE (13:11)
[2019-07-24] MEDS ORDERED: FENTANYL/BUPIVACAINE/NS/PF 300 MCG/150 ML RTUINJ EPI ONE (13:11)
[2019-07-24] MEDS ORDERED: EPHEDRINE SULFATE INJ 50 MG/1 ML AMPULE ONE (13:11)
[2019-07-24] MEDS ORDERED: ZOLPIDEM TARTRATE 5 MG TABLET PO PRN (18:20)
[2019-07-24] MEDS ORDERED: MEASLES,MUMPS&RUBELLA VACC/PF 0.5 ML VIAL SUBCUT PRN (18:20)
[2019-07-24] MEDS ORDERED: ACETAMINOPHEN 325 MG TABLET PO PRN (18:20)
[2019-07-24] MEDS ORDERED: PROMETHAZINE HCL 25 MG SUPP.RECT PR PRN (18:20)
[2019-07-24] MEDS ORDERED: DIBUCAINE 1% OINTMENT 28 GM TP PRN (18:20)
[2019-07-24] MEDS ORDERED: PROMETHAZINE HCL INJ 25 MG/1 ML VIAL IV PRN (18:20)
[2019-07-24] MEDS ORDERED: MAGNESIUM HYDROXIDE SUSP 30 ML UDCUP PO PRN (18:20)
[2019-07-24] MEDS ORDERED: BENZOCAINE/MENTHOL AEROSOL SPRAY 56 ML TOP PRN (18:20)
[2019-07-24] MEDS ORDERED: DIPH/PERTUSS(ACELL)/TETANUS VAC/PF 0.5 ML SYR (>=10YO) IM PRN (18:20)
[2019-07-24] MEDS ORDERED: NA PHOS,M-B/NA PHOS,DI-BA (ADULT) 133 ML ENEMA PR PRN (18:20)
[2019-07-24] MEDS ORDERED: GLYCERIN/WITCH HAZEL LEAF 1 EACH MED..WIPE TP PRN (18:20)
[2019-07-24] MEDS ORDERED: DIPHENHYDRAMINE HCL 25 MG CAPSULE PO PRN (18:20)
[2019-07-24] MEDS ORDERED: ACETAMINOPHEN WITH CODEINE #3 TABLET PO PRN ×2 (18:20)
[2019-07-24] MEDS ORDERED: PSEUDOEPHEDRINE HCL 30 MG TABLET PO PRN (18:20)
[2019-07-24] MEDS ORDERED: PROMETHAZINE HCL 25 MG TABLET PO PRN (18:20)
--- NOTE | 2019-07-24 19:19 | Delivery Summary ---
Del Sum A-C Datetime Report Generated by CPN: 07/24/2019 19:18 DELIVERY PERSONNEL DELIVERY PERSONNEL: [id number] Delivery Doctor:: Kristi Jon MD Labor and Delivery Nurse:: Lily Ayoub RNfilter operator Nurse:: Felicity Fishman RN Nursery Nurse:: Latonia Villa RN Insulation Board Head Saw Operator/GANTRY CRANE OPERATOR: Krunal Castillo, GRANITE POLISHER MATERNAL INFORMATION Delivery Anesthesia: Epidural Medications After Delivery: Pitocin Bolus-Please Comment Meds After Delivery Comment: 20 units in 1000 ML Normal saline Estimated Blood Loss (ml): 50 Delivery QBL: 50 Maternal Complications: None Provider Comments: VFI delivered in MARIANGEL presentation. Tight nuchal cord delivered through. Shoulders and body delivered without difficulty. Cord doubly clamped and cut. to maternal abd for NRP. Placenta delivered intact spontaneously. FF at U. No perineal lacerations. Good hemostasis. Mother and baby stable upon provider leaving the room. LABOR SUMMARY EDC: 07/27/2019 00:00 No. Babies in Womb: 1 Attempted: No Labor Anesthesia: Epidural LABOR INFORMATION Reason for Induction: Gestational Hypertension Onset of Labor: 07/24/2019 08:56 Complete Dilatation: 07/24/2019 18:02 Other Ripening Agents: Pitocin Oxytocin: Induction Group B Beta Strep: negative Antibiotics # of Doses: 0 Steroids Given: None Reason Steroids Not Administered: Not Applicable MEMBRANES Membranes Rupture Method: Artificial Rupture of Membranes: 07/24/2019 16:08 Length of Rupture (hr): 1.97 Amniotic Fluid Color: Light Meconium Amniotic Fluid Amount: Small Amniotic Fluid Odor: Normal STAGES OF LABOR Stage 1 hr: 9 Stage 1 min: 6 Stage 2 hr: 0 Stage 2 min: 4 Stage 3 hr: 0 Stage 3 min: 3 Total Time in Labor hr: 9 Total Time in Labor min: 13 VAGINAL DELIVERY Episiotomy: None Laceration #1: None Laceration Extension #1: N/A Laceration Repair: Not Applicable Sponge Count Correct: Yes Sharps Count Correct: Yes CSECTION DELIVERY Primary Indication: N/A Secondary Indication: N/A CSection Incidence: N/A Labor: N/A Elective: N/A CSection Incision: N/A BABY A INFORMATION Delivery Date/Time: 07/24/2019 18:06 Method of Delivery: Vaginal Nurse Controlled Delivery: No Born in Route : No : N/A Forceps: N/A Vacuum Extraction: N/A Shoulder Dystocia : No PRESENTATION/POSITION BABY A Presentation: Cephalic Cephalic Presentation: Vertex Vertex Position: Right Occipital Anterior Breech Presentation: N/A PLACENTA INFORMATION BABY A Placenta Delivery Time : 07/24/2019 18:09 Placenta Method of Delivery: Spontaneous Placenta Status: Delivered SCORES BABY A Heart Rate 1 min: >100 bpm Resp Effort 1 min: Good Cry Reflex Irritability 1 min: Cough or Sneeze or Pulls Away Muscle Tone 1 min: Active Motion Color 1 min: Body [place], Extremities Blue Resuscitation Effort 1 min: Tactile Stimulation SCORE 1 MIN: 9 Heart Rate 5 min: >100 bpm Resp Effort 5 min: Good Cry Reflex Irritability 5 min: Cough or Sneeze or Pulls Away Muscle Tone 5 min: Active Motion Color 5 min: Body [place], Extremities Blue Resuscitation Effort 5 min: Tactile Stimulation SCORE 5 MIN: 9 INFORMATION BABY A Gestational Age at Delivery: 39.4 Gestational Status: Full Term- 39- 40.6 Weeks Outcome : Liveborn Condition : Stable Sex: Female IDENTIFICATION BABY A Verification Date/Time: 07/24/2019 18:33 ID Band Number: [id number] Mother's Name Verified: Yes RN Verifying Infant: J, Niebuhr RN Additional Verifying Personnel: A. [place] RN WEIGHT/LENGTH BABY A Infant Birthweight (gm): 3780 Weight (lb): 8 Weight (oz): 5 Length (in): 20.00 Length (cm): 50.80 CORD INFORMATION BABY A No. Cord Vessels: 3 Nuchal Cord : Around Neck x1, Tight Cord Blood Taken: Yes-For Storage (Mom's Blood type +) Infant Suction: None ASSESSMENT BABY A Skin to Skin: Yes Skin to Skin Time (min): 45 BABY B INFORMATION : N/A SIGNATURES Signature: with User ID: [email or web address]
[2019-07-24] MEDS: IBUPROFEN 800 MG TABLET PO SCH (22:13)
[2019-07-24] MEDS: FAMOTIDINE 20 MG TABLET PO SCH (22:13)
[2019-07-25] MEDS: IBUPROFEN 800 MG TABLET PO SCH ×3 (05:10→21:56)
[2019-07-25 07:40] LABS: HEMATOCRIT 34.9 % (36.0-47.0); HEMOGLOBIN 11.8 g/dL (12.0-15.5); MEAN CORPUSCULAR HEMOGLOBIN 30.8 pg (27.0-33.4); MEAN CORPUSCULAR HGB CONC 33.8 g/dL (32.0-36.0); MEAN CORPUSCULAR VOLUME 91 fl (80-97); PLATELET COUNT 135 10^3/uL (150-450); RED BLOOD COUNT 3.83 10^6/uL (3.72-5.28); RED CELL DISTRIBUTION WIDTH 13.1 % (11.5-14.0); WHITE BLOOD COUNT 11.6 10^3/uL (4.0-10.5)
[2019-07-25] MEDS: DOCUSATE SODIUM 100 MG CAPSULE PO SCH ×2 (09:47→17:47)
[2019-07-25] MEDS: PRENATAL VITAMIN W DHA CAPSULE PO SCH (09:47)
[2019-07-25] MEDS: SENNOSIDES/DOCUSATE 8.6-50 MG 1 EACH TABLET PO SCH (09:47)
[2019-07-25] MEDS: FERROUS SULFATE 325 MG TABLET PO SCH ×2 (09:47→17:47)
--- NOTE | 2019-07-25 11:41 | PDOC PROGRESS REPORT ---
Subjective-OB Progress Note for:: 07/25/19 Subjective: Doing well, no c/o, baby in room with visitors Physical Exam (OB) Vital Signs: Temp Pulse Resp BP Pulse Ox 97.6 F 74 18 129/69 H 100 07/25/19 09:00 07/25/19 09:00 07/25/19 09:00 07/25/19 09:00 07/25/19 09:00 Intake & Output 07/24/19 07/25/19 07/26/19 06:59 06:59 07:59 Intake Total 1999 Balance 1999 Weight 97.8 kg - Lochia Lochia Amount: Small 10-25 ml Lochia Color: Rubra/Red - Abdomen Description: Soft Hernia Present: No Fundal Description: Firm, Midline Fundal Height: u/u - u/2 Objective-Diagnostic Laboratory: 07/25/19 07:20 07/24/19 09:34 07/25/19 07:20 WBC 11.6 H RBC 3.83 Hgb 11.8 L Hct 34.9 L MCV 91 MCH 30.8 MCHC 33.8 RDW 13.1 Plt Count 135 L Assessment and Plan(PN) - Assessment and Plan (1) Encounter for induction of labor Is this a current diagnosis for this admission?: Yes (2) Gestational hypertension affecting eighth Is this a current diagnosis for this admission?: Yes (3) Vaginal delivery Is this a current diagnosis for this admission?: Yes - Time Spent with Patient Time with patient: Less than 15 minutes Medications reviewed and adjusted accordingly: Yes - Disposition Anticipated Discharge: Home Within: within 24 hours
[2019-07-25] MEDS: FAMOTIDINE 20 MG TABLET PO SCH ×2 (12:27→22:00)
[2019-07-26] MEDS: IBUPROFEN 800 MG TABLET PO SCH (05:38)
[2019-07-26 07:52] VITALS: BP 129/69
--- NOTE | 2019-07-26 10:01 | PDOC PROGRESS REPORT ---
Subjective-OB Progress Note for:: 07/26/19 Subjective: Doing well, no c/o, , voiding, walking, no concerns Physical Exam (OB) Vital Signs: Temp Pulse Resp BP Pulse Ox 97.6 F 67 18 129/69 H 100 07/26/19 07:51 07/26/19 07:51 07/26/19 07:51 07/26/19 07:51 07/26/19 07:51 Intake & Output 07/25/19 07/26/19 07/27/19 05:59 06:59 06:59 Intake Total Balance Weight - PIH/Pre-Eclampsia Headache: Absent Epigastric Pain: No Visual Changes: No - Lochia Lochia Amount: Scant < 10 ml Lochia Color: Rubra/Red - Abdomen Description: Round Hernia Present: No Fundal Description: Firm Fundal Height: u/u - u/2 Objective-Diagnostic Laboratory: 07/25/19 07:20 07/24/19 09:34 Assessment and Plan(PN) - Assessment and Plan (1) Encounter for induction of labor Is this a current diagnosis for this admission?: Yes (2) Gestational hypertension affecting eighth Is this a current diagnosis for this admission?: Yes (3) Vaginal delivery Is this a current diagnosis for this admission?: Yes - Time Spent with Patient Time with patient: Less than 15 minutes Medications reviewed and adjusted accordingly: Yes - Disposition Anticipated Discharge: Home Within: within 24 hours
--- NOTE | 2019-07-26 10:05 | PDOC DISCHARGE SUMMARY ---
Impression - Admit/DC Date/PCP Admission Date/Primary Care Provider: 07/24/19 07:37 LASHAWN VEGA MD Discharge Date: 07/26/19 - Discharge Diagnosis (1) Encounter for induction of labor Is this a current diagnosis for this admission?: Yes (2) Gestational hypertension affecting eighth Is this a current diagnosis for this admission?: Yes (3) Vaginal delivery Is this a current diagnosis for this admission?: Yes - Additional Information Resuscitation Status: Full Code Discharge Diet: As Tolerated, Regular Discharge Activity: Pelvic Rest Referrals: LASHAWN VEGA MD [Primary Care Provider] - ([facility] 2 weeks) Home Medications: No122/Iron/Folic Acid [ Multi Tablet] 1 tab PO DAILY 05/21/18 HPI Gestational Age: 39.4 Reason(s) for Admission: Induction of Labor, [facility] Procedures: NST, Ultrasound Intrapartum Procedure(s): Spontaneous Vaginal Delivery Hospital Course Hospital Course: routine Results Laboratory Results: WBC 11.6 10^3/uL (4.0-10.5) H 07/25/19 07:20 RBC 3.83 10^6/uL (3.72-5.28) 07/25/19 07:20 Hgb 11.8 g/dL (12.0-15.5) L 07/25/19 07:20 Hct 34.9 % (36.0-47.0) L 07/25/19 07:20 MCV 91 fl (80-97) 07/25/19 07:20 MCH 30.8 pg (27.0-33.4) 07/25/19 07:20 MCHC 33.8 g/dL (32.0-36.0) 07/25/19 07:20 RDW 13.1 % (11.5-14.0) 07/25/19 07:20 Plt Count 135 10^3/uL (150-450) L 07/25/19 07:20 Lymph % (Auto) 19.4 % (13-45) 07/24/19 09:34 [place] % (Auto) 7.9 % (3-13) 07/24/19 09:34 Eos % (Auto) 0.3 % (0-6) 07/24/19 09:34 Baso % (Auto) 0.3 % (0-2) 07/24/19 09:34 Absolute Neuts (auto) 7.5 10^3/uL (1.7-8.2) 07/24/19 09:34 Absolute Lymphs (auto) 2.0 10^3/uL (0.5-4.7) 07/24/19 09:34 Absolute Monos (auto) 0.8 10^3/uL (0.1-1.4) 07/24/19 09:34 Absolute Eos (auto) 0.0 10^3/uL (0.0-0.6) 07/24/19 09:34 Absolute Basos (auto) 0.0 10^3/uL (0.0-0.2) 07/24/19 09:34 Seg Neutrophils % 72.1 % (42-78) 07/24/19 09:34 Sodium 136.6 mmol/L (137-145) L 07/24/19 09:34 Potassium 4.1 mmol/L (3.6-5.0) 07/24/19 09:34 Chloride 108 mmol/L (98-107) H 07/24/19 09:34 Carbon Dioxide 21 mmol/L (22-30) L 07/24/19 09:34 Anion Gap 8 (5-19) 07/24/19 09:34 BUN 14 mg/dL (7-20) 07/24/19 09:34 Creatinine 0.51 mg/dL (0.52-1.25) L 07/24/19 09:34 Est GFR ( Amer) > 60 (>60) 07/24/19 09:34 Est GFR (MDRD) Non-Af > 60 (>60) 07/24/19 09:34 Glucose 86 mg/dL (75-110) 07/24/19 09:34 Uric Acid 5.8 mg/dL (2.5-6.2) 07/24/19 09:34 Calcium 8.8 mg/dL (8.4-10.2) 07/24/19 09:34 Total Bilirubin 0.2 mg/dL (0.2-1.3) 07/24/19 09:34 Direct Bilirubin 0.2 mg/dL (0.0-0.4) 07/24/19 09:34 Neonat Total Bilirubin Not Reportable 07/24/19 09:34 Neonat Direct Bilirubin Not Reportable 07/24/19 09:34 Neonat Indirect Bili Not Reportable 07/24/19 09:34 AST 17 U/L (14-36) 07/24/19 09:34 ALT 11 U/L (<35) 07/24/19 09:34 Alkaline Phosphatase 131 U/L (38-126) H 07/24/19 09:34 Lactate Dehydrogenase 170 U/L (120-246) 07/24/19 09:34 Total Protein 5.7 g/dL (6.3-8.2) L 07/24/19 09:34 Albumin 2.8 g/dL (3.5-5.0) L 07/24/19 09:34 Urine Color YELLOW 07/24/19 07:45 Urine Appearance SLIGHTLY-CLOUDY 07/24/19 07:45 Urine pH 6.0 (5.0-9.0) 07/24/19 07:45 Ur Specific [place] 1.023 07/24/19 07:45 Urine Protein 30 mg/dL (NEGATIVE) H 07/24/19 07:45 Urine Glucose (UA) NEGATIVE mg/dL (NEGATIVE) 07/24/19 07:45 Urine Ketones NEGATIVE mg/dL (NEGATIVE) 07/24/19 07:45 Urine Blood MODERATE (NEGATIVE) H 07/24/19 07:45 Urine Nitrite NEGATIVE (NEGATIVE) 07/24/19 07:45 Urine Bilirubin NEGATIVE (NEGATIVE) 07/24/19 07:45 Urine Urobilinogen NEGATIVE mg/dL (<2.0) 07/24/19 07:45 Ur Leukocyte Esterase SMALL (NEGATIVE) H 07/24/19 07:45 Urine WBC (Auto) 12 /HPF 07/24/19 07:45 Urine RBC (Auto) 1 /HPF 07/24/19 07:45 Urine Bacteria (Auto) TRACE /HPF 07/24/19 07:45 Squamous Epi Cells Auto 7 /HPF 07/24/19 07:45 Urine Mucus (Auto) RARE /LPF 07/24/19 07:45 Urine Creatinine 96.3 mg/dL (16-327) 07/24/19 07:45 Protein/Creatinin Ratio 0.2 mg/mg (0.0-0.2) 07/24/19 07:45 Urine Total Protein 23.9 mg/dL (<12) H 07/24/19 07:45 Urine Ascorbic Acid NEGATIVE (NEGATIVE) 07/24/19 07:45 Urine Opiates Screen NEGATIVE 07/24/19 07:45 Urine Methadone Screen NEGATIVE 07/24/19 07:45 Ur Barbiturates Screen NEGATIVE 07/24/19 07:45 Ur Phencyclidine Scrn NEGATIVE 07/24/19 07:45 Ur Amphetamines Screen NEGATIVE 07/24/19 07:45 U Benzodiazepines Scrn NEGATIVE 07/24/19 07:45 Urine Cocaine Screen NEGATIVE 07/24/19 07:45 U Marijuana (THC) Screen NEGATIVE 07/24/19 07:45 Blood Type A POSITIVE 07/24/19 09:34 Antibody Screen NEGATIVE 07/24/19 09:34 Plan Health Concerns: blood pressure Plan of Treatment: rev S&S to report, [facility] 2 weeks Goals: no complications Time Spent: Less than 30 Minutes
[2019-07-26] MEDS: PRENATAL VITAMIN W DHA CAPSULE PO SCH (10:53)
[2019-07-26] MEDS: FERROUS SULFATE 325 MG TABLET PO SCH (10:53)
[2019-07-26] MEDS: DOCUSATE SODIUM 100 MG CAPSULE PO SCH (10:53)
[2019-07-26] MEDS: SENNOSIDES/DOCUSATE 8.6-50 MG 1 EACH TABLET PO SCH (10:53)
[2019-07-26] MEDS: FAMOTIDINE 20 MG TABLET PO SCH (10:54)
== END 2019-07-26 13:00 | disposition home or self-care (01) | DRG 807 ==
LOC: LR 07:37 → 2S 20:16
PROVIDERS: ADMIT Student in an Organized Health Care Education/Training Program; ATTEND Student in an Organized Health Care Education/Training Program
PROC: 10E0XZZ Delivery of Products of Conception, External Approach (ICD-10-PCS; principal; 2019-07-24)
PROC: 10907ZC Drainage of Amniotic Fluid, Therapeutic from Products of Conception, Via Natural or Artificial Opening (ICD-10-PCS; 2019-07-24)
DX: O13.4 Gestational [pregnancy-induced] hypertension without significant proteinuria, complicating childbirth (principal); Z37.0 Single live birth; O77.0 Labor and delivery complicated by meconium in amniotic fluid; O69.1XX0 Labor and delivery complicated by cord around neck, with compression, not applicable or unspecified; O99.334 Smoking (tobacco) complicating childbirth; F17.210 Nicotine dependence, cigarettes, uncomplicated; Z3A.39 39 weeks gestation of pregnancy; Z87.891 Personal history of nicotine dependence
CPT/HCPCS: 36415; 59025; 80053; 80307; 81001; 82570; 83615; 84156; 84550; 85025; 85027; 86592; 86850; 86900; 86901; J2590; J3010; J3490

== ENCOUNTER 2019-11-16 12:27 | Day surgery (SDC) | payer OTHER, MEDICAID ==
[2019-11-11 12:06] LABS: APPEARANCE,URINE CLEAR; BILIRUBIN,URINE NEGATIVE (NEGATIVE); COLOR,URINE STRAW; GLUCOSE, URINE NEGATIVE (NEGATIVE); KETONES,URINE NEGATIVE (NEGATIVE); LEUKOCYTE ESTERASE,URINE NEGATIVE (NEGATIVE); NITRITE,URINE NEGATIVE (NEGATIVE); PROTEIN,URINE NEGATIVE (NEGATIVE); URINE SPECIFIC GRAVITY 1.013; UROBILINOGEN,URINE NEGATIVE mg/dL (<2.0)
[2019-11-11 12:07] LABS: HEMOGLOBIN 13.7 g/dL (12.0-15.5); MEAN CORPUSCULAR HEMOGLOBIN 29.1 pg (27.0-33.4); MEAN CORPUSCULAR HGB CONC 33.3 g/dL (32.0-36.0); MEAN CORPUSCULAR VOLUME 88 fl (80-97); PLATELET COUNT 230 10^3/uL (150-450); RED BLOOD COUNT 4.69 10^6/uL (3.72-5.28); RED CELL DISTRIBUTION WIDTH 13.7 % (11.5-14.0); WHITE BLOOD COUNT 6.7 10^3/uL (4.0-10.5)
[~2019-11-16 12:27] MED LIST: LACTATED RINGERS 1000 ML IV PRN; LIDOCAINE 0.5% INJ-PF (5 MG/ML) 50 ML SDV SUBCUT PRN; SUCCINYLCHOLINE CHLORIDE INJ 200 MG/10 ML VIAL ONE
[2019-11-16] MEDS ORDERED: KETOROLAC TROMETHAMINE 60 MG/2 ML SDV ONE (13:41)
[2019-11-16] MEDS ORDERED: MIDAZOLAM 2 MG/2 ML INJ ONE (13:42)
[2019-11-16] MEDS ORDERED: DEXAMETHASONE SOD PHOSPHATE INJ 4 MG/1 ML VIAL ONE (13:42)
[2019-11-16] MEDS ORDERED: ONDANSETRON HCL INJ/PF 4 MG/2 ML SDV ONE (13:42)
[2019-11-16] MEDS ORDERED: PROPOFOL INJ 200 MG/20 ML VIAL IV ONE (13:42)
[2019-11-16] MEDS ORDERED: FENTANYL CITRATE INJ/PF 100 MCG/2 ML AMPUL ONE (13:42)
[2019-11-16] MEDS ORDERED: MORPHINE SULFATE 10 MG/ML INJ IV PRN (14:17)
[2019-11-16] MEDS ORDERED: PROMETHAZINE HCL INJ 25 MG/1 ML VIAL IV PRN ×2 (14:17)
[2019-11-16] MEDS ORDERED: ONDANSETRON HCL INJ/PF 4 MG/2 ML SDV IV PRN (14:17)
[2019-11-16] MEDS ORDERED: FENTANYL CITRATE INJ/PF 100 MCG/2 ML AMPUL IV PRN ×3 (14:17)
[2019-11-16] MEDS ORDERED: OXYCODONE-ACETAMINOPHEN 5-325 MG TABLET PO PRN ×4 (14:17→14:45)
[2019-11-16] MEDS ORDERED: MEPERIDINE HCL/PF INJ 25 MG/1 ML DISP.SYRIN IV PRN (14:17)
[2019-11-16] MEDS ORDERED: DIPHENHYDRAMINE HCL 50 MG/ML VIAL IV PRN (14:17)
[2019-11-16] MEDS ORDERED: HYDROMORPHONE HCL INJ/PF 2 MG/ML AMPULE ONE (14:36)
[2019-11-16] MEDS ORDERED: KETOROLAC TROMETHAMINE INJ/PF 30 MG/1 ML SDV IV PRN (14:45)
[2019-11-16] MEDS ORDERED: IBUPROFEN 800 MG TABLET PO PRN (14:45)
[2019-11-16] MEDS ORDERED: RINGERS SOLUTION,LACTATED 1,000 ML IV PRN (14:45)
--- NOTE | 2019-11-16 14:49 | Operative Report ---
Operative Report DATE OF SURGERY: 11/16/19 PREOPERATIVE DIAGNOSIS: Patient desires surgical sterilization POSTOPERATIVE DIAGNOSIS: Same OPERATION: Laparoscopic bilateral tubal cautery SURGEON: RUBIN MARIA ANESTHESIA: GA TISSUE REMOVED OR ALTERED: Fallopian tubes COMPLICATIONS: None ESTIMATED BLOOD LOSS: Minimal INTRAOPERATIVE FINDINGS: Normal fallopian tubes PROCEDURE: Patient was taken the OR and placed in supine position. General anesthesia was induced. She is placed on dorsolithotomy position using Joe stirrups. Her abdomen perineum and vagina were prepared and draped in sterile fashion. Her bladder had been emptied by voiding prior to surgery and was not catheterized. An incision was made at the umbilicus. Natural umbilical defect was identified and dilated using a Karlee clamp. This allowed the placement of a blunt port. Laparoscopy confirmed appropriate placement. The abdomen was insufflated with CO2 gas. View of the pelvis was good. Using a sponge stick in the vagina the uterus was elevated each fallopian tube was identified and followed out to its fimbriated ends. Each tube was then cauterized at the mid isthmic portion with 5 successive bites moving back toward the uterine cornu. Photos were taken there were no complications. At the end of the case the gas was allowed to escape from the abdomen. The port and scope were removed at the same time. The fascia at the umbilicus was closed with 2-0 Vicryl stitch and skin closed with a 4-0 undyed Vicryl stitch. The patient was extubated and taken recovery in stable condition.
[2019-11-16] MEDS ORDERED: OXYCODONE-ACETAMINOPHEN 5-325 MG TABLET ONE (15:51)
[2019-11-16] MEDS ORDERED: IBUPROFEN 800 MG TABLET ONE (15:52)
[2019-11-16 16:58] VITALS: BP 153/85
== END 2019-11-16 16:50 | disposition home or self-care (01) ==
LOC: OROUT 12:27
PROVIDERS: ATTEND Obstetrics & Gynecology
DX: Z30.2 Encounter for sterilization (principal); Z87.891 Personal history of nicotine dependence; E66.01 Morbid (severe) obesity due to excess calories; Z68.42 Body mass index [BMI] 45.0-49.9, adult; Z03.818 Encounter for observation for suspected exposure to other biological agents ruled out
CPT/HCPCS: 36415; 85027; 87635; 81005; 81025; 58670; J2250; J1100; J1885; J3010; J2405; J2704; C9803; J0330; J1170